=== PATIENT | male | born 1960 | race Caucasian/White ===

== ENCOUNTER 2017-06-26 17:12 | Outpatient (CLI) | payer OTHER ==
[2017-06-26 17:46] LABS: #Eosinphils 0.2 thou/uL (0.0-0.7); #Lymphocytes 2.2 thou/uL (1.20-3.40); #Monocytes 0.5 thou/uL (0.11-0.59); #Neutrophils 3.3 thou/uL (1.40-6.50); %Basophils 0.6 % (0.0-1.0); %Eosinophils 2.5 % (0.0-10.0); %Lymphocytes 36.2 % (21.0-51.0); Hematocrit 45.4 % (42.0-52.0); Mean Platelet Volume 6.8 fL (7.4-10.4); Red Blood Cell (RBC) Count 4.81 mill/uL (4.70-6.10); White Blood Cell (WBC) Count 6.2 thou/uL (4.8-10.8)
[2017-06-26 18:12] LABS: ALT (SGPT) 13 U/L (8-55); AST (SGOT) 12 U/L (5-34); Alkaline Phosphatase 58 U/L (40-150); Anion Gap 11 mmol/L (10-20); BUN (Urea Nitrogen) 21 mg/dL (8.4-25.7); Bilirubin, Total 0.5 mg/dL (0.2-1.2); Calc. Creatinine Clearance 0 mL/min (70-130); Calcium 9.2 mg/dL (7.8-10.44); Carbon Dioxide 28 mmol/L (22-29); Chloride 104 mmol/L (98-107); Estimated GFR-MDRD 82; Globulin 3.2 g/dL (2.4-3.5); Protein, Total 7.3 g/dL (6.0-8.3)
== END 2017-06-26 17:13 | disposition home or self-care (01) ==
LOC: LABBT 17:12
PROVIDERS: ATTEND Surgery
DX: Z01.818 Encounter for other preprocedural examination (principal); K40.90 Unilateral inguinal hernia, without obstruction or gangrene, not specified as recurrent
CPT/HCPCS: 80053; 85025; 93005; 93010

== ENCOUNTER 2017-06-28 07:46 | Day surgery (SDC) | payer OTHER ==
[2017-06-26 17:18] VITALS: BMI 29.8
[2017-06-28] MEDS ORDERED: CEFAZOLIN/Water 2 GM/20 ML SYRINGE ONE (08:41)
[2017-06-28] MEDS ORDERED: Bupivacaine/Epinephrine 0.25% 30 ML VIAL ONE (08:51)
[2017-06-28] MEDS ORDERED: Midazolam HCl 2 mg/2 ml Vial ONE ×2 (08:55→08:59)
[2017-06-28] MEDS ORDERED: Fentanyl 250 MCG/5 ML VIAL ONE (08:55)
[2017-06-28] MEDS ORDERED: Propofol 200 MG/20 ML VIAL ONE ×2 (09:07)
[2017-06-28] MEDS ORDERED: Ketorolac Tromethamine 30 MG/ML VIAL ONE (09:07)
[2017-06-28] MEDS ORDERED: Glycopyrrolate 0.2 MG/ML 5 ML SYRINGE ONE (09:07)
[2017-06-28] MEDS ORDERED: Ondansetron HCl/PF 4 MG/2 ML Vial ONE (09:07)
[2017-06-28] MEDS ORDERED: Dexamethasone 20 MG/5 ML VIAL ONE (09:07)
[2017-06-28] MEDS ORDERED: Esmolol 100 MG/10 ML VIAL ONE (09:07)
[2017-06-28] MEDS ORDERED: Fentanyl 100 MCG/2 ML VIAL ONE (10:45)
[2017-06-28] MEDS ORDERED: SUGAMMADEX SODIUM 200 MG/2 ML VIAL ONE (10:51)
[2017-06-28] MEDS ORDERED: HYDROcodone/Acetaminophen 5/325 mg Tablet ONE (11:47)
[2017-06-28] MEDS ORDERED: Morphine 4 MG/ML VIAL ONE (11:47)
--- NOTE | 2017-06-29 00:05 | OP ---
PREOPERATIVE DIAGNOSIS: Left inguinal hernia. PROCEDURES DURING ADMISSION: Open repair of incarcerated left inguinal hernia with mesh. INDICATIONS: This is a 57-year-old male who had enlarging left inguinal hernia causing pain, he is h aving progressive constipation. FINDINGS: Sigmoid colon was incarcerated into his scrotum. It was impacted with fecal material martita ng it very difficult to reduce it back into the abdomen. PROCEDURE IN DETAIL: After informed consent was obtained, patient was taken to the operating room an d given general mask anesthesia, placed in the supine position. His groin and scrotum were prepped a nd draped in the usual fashion. Local anesthesia infiltrated subcutaneously and deep. A transverse left inguinal incision was performed. Subcu divided sharply. Fascia of external oblique was incised in the direction of its fibers through the external ring. The spermatic cord was massive. With prerna nt dissection, I was able to encircle it, then tried to reduce it by putting pressure on the scrotum to reduce it and nothing budged, so I opened up the hernia sac anteriorly and was able to get to omen marylin. There was also large bowel inside as well, but it would not reduce. I had further opened up th e subcu onto the pubic tubercle and then started making some headway with reduction. It turned out t hat the colon was impacted with feces which made it extremely difficult to go through the canal and e ventually was able to get it reduced. Then, I found that the colon itself made a part of the wall ma carley a sliding hernia. This had to be from the hernia sac in order to fully reduce the sig moid colon. Then the sigmoid colon was reduced and the hernia sac was closed with a pursestring of 0 silk suture. Redundant sac was excised. In order to get it reduced, I had to have the systems integrator put him under general anesthesia, so we could get muscle relaxation and then we were able to get it r educed. Then a PHS hernia system extended was used. The posterior layer was placed in the preperito nayely space. It was then sutured to the pubic tubercle medial with a 2-0 Prolene suture and tucked un donavan the external oblique fascia laterally and then medially it was sutured to the reflected edge of t he external oblique fascia, underneath the external oblique fascia with interrupted 2-0 Prolene sutur es. A notch was cut out for the spermatic cord. Hemostasis was assured. The wound was thoroughly i rrigated. The external oblique fascia then closed over the cord with a running 3-0 Vicryl. Scarpas closed with interrupted 3-0 Vicryl and the skin closed with a running subcuticular 4-0 Rapide. Steri -Strips applied and an athletic supporter was used. Patient tolerated the procedure well and transfe rred to recovery in good condition. Sponge and needle count verified correct x2.
== END 2017-06-28 13:10 | disposition home or self-care (01) ==
LOC: SDC 07:46
PROVIDERS: ATTEND Surgery
PROC: 0YU60JZ Supplement Left Inguinal Region with Synthetic Substitute, Open Approach (ICD-10-PCS; principal; 2017-06-28)
DX: K40.30 Unilateral inguinal hernia, with obstruction, without gangrene, not specified as recurrent (principal); F17.200 Nicotine dependence, unspecified, uncomplicated
CPT/HCPCS: C1781; J1100; J1885; J2250; J2270; J2405; J2704; J2710; J3010